=== PATIENT | male | born 1975 | race Two or more races ===

== ENCOUNTER 2024-07-06 09:40 | Day surgery (SDC) | payer OTHER, SELFPAY ==
--- NOTE | 2024-07-03 07:00 | EKG_ITS ---
[facility] Test Date: 2024-07-03 Pat Name: REMY CRUZ Department: Room: - Gender: Male [employer]ating Installer: ADRIANO : 1975 Requested By: Horacio Clemente Order Number: [id number] Reading MD: Horacio Clemente Measurements Intervals [place] Rate: 64 P: 28 UT: 172 QRS: 35 QRSD: 91 T: 56 QT: 411 QTc: 427 Interpretive Statements SINUS RHYTHM POSSIBLE INFERIOR MYOCARDIAL INFARCTION , PROBABLY OLD [30 ms Q WAVE IN II/aVF] No previous ECG available for comparison /store/S0/[id number].pdf
[2024-07-03 09:43] VITALS: BMI 31.3
[2024-07-03 11:37] LABS: Alanine Aminotransferase 36 U/L (10-49); Albumin/Globulin Ratio 1.2 (1.2-2.2); Alkaline Phosphatase 83 U/L (46-116); Anion Gap 9 (7-16); Aspartate Amino Transferase 27 U/L (0-34); BUN/Creatinine Ratio 11 Ratio (12-20); Bilirubin,Total 0.7 mg/dL (0.3-1.2); Blood Urea Nitrogen 10 mg/dL (9-23); Calcium 8.8 mg/dL (8.3-10.6); Calcium (Corrected) 8.8 mg/dL (8.5-10.1); Carbon Dioxide 25.7 mMol/L (20.0-31.0); Chloride 104 mMol/L (98-107); Creatinine (Component) 0.9 mg/dL (0.6-1.3); Globulin 3.4 gm/dL (2.3-3.5); Glucose 111 mg/dL (74-106); Osmolality,Calculated 277 (275-295); Potassium 3.9 mMol/L (3.4-5.1); Sodium 139 mMol/L (136-145); Total Protein 7.4 gm/dL (5.7-8.2); eGFR > 60 See Note
[2024-07-06] VITALS (9 sets, daily range): BP systolic 117–142; BP diastolic 77–96; PULSE 66–86; RESP 12–16; TEMP 36.4–36.7; O2SAT 95–99; BMI 30.8
[2024-07-06] MEDS: RINGERS LACTATED 1000 ML 1,000 ML 20 ML IV (10:14)
--- NOTE | 2024-07-06 12:08 | SUR.PHASEI ---
1208:pt received from OR via [employer].received report from and Roger RN.pt alert and oriented to name, place and time. no c/o pain or discomfort. no s/s of resp. distress or discomfort. dermabond to right side of head near by right ear clean, dry and intact.
--- NOTE | 2024-07-06 12:08 | PD.SUROPNT ---
Date of Procedure 07/06/24 Pre Op Diagnosis Right preauricular swelling Post Op Diagnosis Right preauricular swelling Procedure Biopsy of right preauricular swelling under general anesthesia Findings 12 mm area of thickened subcutaneous tissue and parotid tissue preauricular in location on the right side. No discrete masses located. Procedure Description This is a 48-year-old male with a persistent and slowly growing right preauricular mass. Patient wished to have it removed. Risk of the procedure including bleeding infection and partial facial paralysis were discussed. Patient was marked in the preoperative setting and transferred to the operative suite where he was sterilely prepped and draped after being anesthetized. Timeout was performed. The area in question was injected with 1% lidocaine with 1 100,000 dilution epinephrine. Approximately 1 cc total was used. 11 blade was used to make a 1 cm incision over the area dissection was carried through the subcutaneous tissue and no discrete masses were found. A sample of the underlying tissue which appeared to be fatty fibrous and parotid tissue were removed. We are working right over the temporal arteries of care was taken not to injure it or the frontal branch of the facial nerve. Only mild oozing occurred. Incision was then closed with 4-0 Vicryl suture along with Dermabond on the skin. The patient was awakened and taken the recovery room in stable condition Anesthesia other (General Per LMA) Pathology / specimen Other (Right preauricular tissue) Estimated Blood Loss 1 Surgeon Horacio Price DO Surgical Staff Operation Date: 07/06/24 12:00 Case Staff Anesthesiologist: Adithya Delgadillo
--- NOTE | 2024-07-06 12:20 | SUR.PHASEI ---
1220: pt alert and oriented to name, place and time. no c/o pain or discomfort. no s/s of resp. distress or discomfort. dermabond to right side of head near by right ear clean, dry and intact. 1220:
--- NOTE | 2024-07-06 12:20 | SUR.PHASEI ---
1220: Report received from Juanjo RN, pt. AAOx4, vitals stable, breathing unlabored, no complaint of pain or nausea, dressing to face CDI, no active bleed noted.
--- NOTE | 2024-07-06 13:07 | SUR.PHASEII ---
1307: Pt. AAOx4, vitals stable, breathing unlabored, no complaint of pain or nausea, dressing to right face CDI, no active bleed noted. Pt. tolerated sips of water well, pt. ambulated to wheelchair with steady gait and no assist, no complications. Gave discharge instructions to the pt. and his ride, both verbalized understanding and had no further questions. Pt. left with all personal belongings.
== END 2024-07-06 13:07 | disposition home or self-care (01) ==
PROVIDERS: Anesthesiology; PCP Family Medicine; Referring Provider Otolaryngology; Visit Provider Otolaryngology
PROC: (CPT 11441; principal; 2024-07-06 11:45)
DX: D17.0 Benign lipomatous neoplasm of skin and subcutaneous tissue of head, face and neck (principal); Z01.810 Encounter for preprocedural cardiovascular examination
CPT/HCPCS: 11441; 36415; 80053; 93005; A4217; A4649; J1100; J1885; J2250; J2405; J2704; J3010; J3490; J7120